=== PATIENT | male | born 1960 | race Caucasian/White ===

== ENCOUNTER 2023-10-31 21:05 | Emergency (ER) | payer OTHER ==
[~2023-10-31] VITALS: Ht 185.4 cm; Wt 118.7 kg
[2023-10-31] MEDS: MORPHINE 2 MG/ML 1ML VIAL IV PRN (21:18)
[2023-10-31 21:29] LABS: BASO # 0.1 10^3/uL (0.0-0.2); BASO % 0.5 % (0.0-1.0); EOS # 0.1 10^3/uL (0.0-0.5); EOS % 0.9 % (0.0-3.0); HEMATOCRIT 43.9 % (42.0-52.0); HEMOGLOBIN 15.6 g/dl (13.5-17.5); LYMPH # 1.7 10^3/uL (1.5-5.0); LYMPH % 15.9 % (24.0-44.0); MEAN CORPUSCULAR HEMOGLOBIN 31.5 pg (27.0-33.0); MEAN CORPUSCULAR HGB CONC 35.5 g/dl (32.0-36.5); MEAN CORPUSCULAR VOLUME 88.5 fl (80.0-96.0); MONO # 0.7 10^3/uL (0.0-0.8); MONO % 6.8 % (2.0-8.0); NEUTROPHILS # 8.2 10^3/uL (1.5-8.5); NEUTROPHILS % 75.4 % (36.0-66.0); PLATELET COUNT, AUTOMATED 386 10^3/uL (150-450); RED BLOOD COUNT 4.96 10^6/uL (4.30-6.10); WHITE BLOOD COUNT 10.9 10^3/uL (4.0-10.0)
[2023-10-31] MEDS: TENECTEPLASE 50 MG/10 ML VIAL IV STA (21:30)
[2023-10-31] MEDS: HEPARIN SOD (PORCINE) 5000UNITS/ML 1ML VIAL/SYRINGE IV ONE (21:31)
[2023-10-31] MEDS: HEPARIN DRIP 25,000 UNITS in IV 1 EA IV SCH (21:34)
[2023-10-31] MEDS: CLOPIDOGREL 300 MG TAB (PLAVIX) PO STA (21:37)
[2023-10-31 21:41] LABS: INR 1.01; PARTIAL THROMBOPLASTIN TIME 26.8 SECONDS (24.8-34.2)
[2023-10-31] MEDS ORDERED: REPA140I2 SC (21:42)
[2023-10-31] MEDS ORDERED: TRIL45CA2 PO (21:44)
[2023-10-31 21:53] LABS: CK-MB VALUE MASS 12.1 NG/ML (<3.6)
[2023-10-31 21:54] LABS: BLOOD UREA NITROGEN 17 MG/DL (9-23); CALCIUM LEVEL 9.4 MG/DL (8.3-10.6); CARBON DIOXIDE LEVEL 18 MMOL/L (20-31); CHLORIDE LEVEL 110 MMOL/L (98-107); CPK CREATINE PHOSPHOKINASE 443 U/L (46-171); CREATININE FOR GFR 1.16 MG/DL (0.70-1.30); GLOMERULAR FILTRATION RATE > 60.0 (>49); GLUCOSE, FASTING 164 MG/DL (74-106); MB/CK RELATIVE INDEX 2.73 (< OR =4); POTASSIUM SERUM 3.4 MMOL/L (3.5-5.1); SODIUM LEVEL 142 MMOL/L (136-145)
[2023-10-31] MEDS: POTASSIUM CHLORIDE 10MEQ SR TABLET PO ONE (22:10)
[2023-10-31] MEDS ORDERED: ONDANSETRON 4MG 2ML VIAL As Ordered ONE (22:11)
[2023-10-31] MEDS: ONDANSETRON 4MG 2ML VIAL IV ONE (22:15)
[2023-10-31 23:46] VITALS: BP 151/92; TEMP 97.7; O2SAT 94
[2023-10-31] MEDS ORDERED: MORPHINE 4 MG/ML 1ML VIAL As Ordered ONE (23:59)
== END 2023-11-01 | disposition short-term general hospital (02) ==
LOC: EDBD 21:05 → M ED 21:05
DX: I21.3 ST elevation (STEMI) myocardial infarction of unspecified site (principal); F17.290 Nicotine dependence, other tobacco product, uncomplicated
CPT/HCPCS: 71045; 80047; 80048; 82550; 82553; 84484; 85025; 85610; 85730; 93005; 93041; 94760; 96365; 96366; 96374; 96375; 99291; 99292; J2405; J3101